=== PATIENT | female | born 1980 | race Caucasian/White ===

== ENCOUNTER 2019-06-26 10:25 | Emergency (ER) | payer OTHER ==
[~2019-06-26] VITALS: Ht 167.6 cm; Wt 76.2 kg
[~2019-06-26 10:25] MED LIST: HUMALOG KW100 UNIT/1
== END 2019-06-26 15:53 | disposition home or self-care (01) ==
LOC: ER 10:25
DX: B34.9 Viral infection, unspecified (principal)

== ENCOUNTER 2025-08-21 08:36 | Outpatient (CLI) | payer OTHER | END 2025-08-21 08:37 | disposition home or self-care (01) | LOC: PRENATAL 08:36 | PROVIDERS: ATTEND Obstetrics & Gynecology Maternal & Fetal Medicine | DX: Z76.1 Encounter for health supervision and care of foundling (principal) ==